=== PATIENT | female | born 1980 | race Caucasian/White ===

== ENCOUNTER 2017-02-19 20:55 | Emergency (ER) | payer MEDICAID ==
[2017-02-19] MEDS ORDERED: Alum Hydrox/Mag Hydrox/Simeth 15 ML, Lidocaine 2% 15 ML PO ONE ×2 (21:26)
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
[2017-02-19] MEDS ORDERED: Ketorolac 60 MG/2 ML SDV IM ONE (22:27)
[2017-02-19 22:36] VITALS: BP 120/69
[2017-02-20] MEDS ORDERED: Acetaminophen 325 MG Tab PO ONE (00:16)
--- NOTE | 2017-02-20 09:15 | CR ---
Chest 2V INDICATION: Chest Pain FINDINGS: Negative chest.
== END 2017-02-20 00:41 ==
LOC: JP.ED 20:55
DX: R07.89 Other chest pain (principal); Z90.49 Acquired absence of other specified parts of digestive tract; Z98.890 Other specified postprocedural states; Z91.018 Allergy to other foods
CPT/HCPCS: 36415; 71020; 80053; 83690; 84484; 85025; 85379; 93005; 96372; 99285; A9270; J1885; 93010; 99284